=== PATIENT | female | born 1980 | race Caucasian/White ===

== ENCOUNTER 2017-06-26 12:16 | Emergency (ER) | payer OTHER ==
[~2017-06-26] VITALS: Ht 160 cm; Wt 142.7 kg
[2017-06-26 12:16] VITALS: BP 142/71
[~2017-06-26 12:16] MED LIST: ESCI10TA2 PO; FAMO40TA3 PO; FLUN25SP; GLIP-162 PO; INVO1TAB PO; LISI-538 PO; MICR1TAB10 PO; MONT10TA2 PO; OMEP40CA2 PO; TRUL0.5I SC; VITA200015 PO; VITATAB11 PO
--- NOTE | 2017-06-26 13:30 | REP ---
Vertebral body heights, interspacing alignment are normal. The prevertebral soft tissues are normal. The facets are normally aligned. There is reversal of the normal cervical lordosis. This could be positional or from muscular spasm. The odontoid view is. Impression: No fracture or listhesis. There is reversal of the normal lordosis, positional versus muscular spasm. Signed by Emigdio Wright MD 06/26/2017 01:22 P
[2017-06-26] MEDS ORDERED: CYCL10TA PO (14:30)
--- NOTE | 2017-06-26 15:35 | REP ---
LUMBOSACRAL SPINE: Five views of the lumbosacral spine are performed. There is no evidence of fracture or malalignment. There is normal lumbar lordosis. I do not see significant disc space narrowing. Posterior elements appear intact. IMPRESSION: No acute fracture or dislocation. Signed by Emigdio Valdovinos MD 06/26/2017 05:02 P
== END 2017-06-26 14:50 | disposition home or self-care (01) ==
LOC: M ED 12:16
DX: Z04.1 Encounter for examination and observation following transport accident (principal); M54.2 Cervicalgia; M54.5 Low back pain; V43.52XA Car driver injured in collision with other type car in traffic accident, initial encounter; Y92.410 Unspecified street and highway as the place of occurrence of the external cause; Y93.89 Activity, other specified; Y99.8 Other external cause status; E11.9 Type 2 diabetes mellitus without complications; Z79.899 Other long term (current) drug therapy; Z88.5 Allergy status to narcotic agent; Z88.8 Allergy status to other drugs, medicaments and biological substances

== ENCOUNTER → 2021-01-04 | Outpatient (CLI) | payer BC ==
[~2021-01-04] MED LIST changes: +CYCL-707 PO; +ESCI10TA16 PO; -ESCI10TA2 PO; -LISI-538 PO; +LISI20TA33 PO; -MICR1TAB10 PO; +MICR1TAB18 PO; +MONT10TA10 PO; -MONT10TA2 PO; -OMEP40CA2 PO; +OMEP40CA4 PO
--- NOTE | 2021-01-04 13:52 | REPMRS ---
Patient History The patient states she had a clinical breast exam in September 2020. Patient is nulliparous. Family history of pancreatic cancer in maternal grandfather. Took hormonal contraceptives for 20 years. Baseline @ 40 No breast complaints today Patient signed the MRS sheet 1st covid vaccine 08/08/20-right arm-Pfizer 2nd covid vaccine 08/31/20-left arm Patient Identification Verified Patient denied Digital Woman Screen Mammo: January 04, 2021 - Exam #: [id number] Bilateral CC and MLO view(s) were taken. Technologist: Courtney Garcia, Technologist No prior studies available for comparison. FINDINGS: The breast tissue is almost entirely fat. The Volpara volumetric breast density category is: A. There is no evidence of dominant mass, architectural distortion, or grouped microcalcification typical of malignancy. 3-D tomosynthesis shows no additional findings. Assessment: BI-RADS/ACR category 1 mammogram. Negative Mammogram. Recommendation Routine screening mammogram of both breasts in 1 year (for women over age 40). This patient's [facility] Lifetime Breast Cancer RIsk is estimated at 13.8 %. This mammogram was interpreted with the aid of an FDA-approved computer-aided dectection system. Electronically Signed By: Shen Bro MD 01/04/21 [id number]
== END ==
LOC: M WHC 13:02
PROVIDERS: ATTEND Nurse Practitioner Family
DX: Z12.31 Encounter for screening mammogram for malignant neoplasm of breast (principal)

== ENCOUNTER → 2022-01-21 | Outpatient (CLI) | payer BC ==
[~2022-01-21] MED LIST changes: -MICR1TAB18 PO; -MONT10TA10 PO; +MONT10TA97 PO; +NORE1TAB94 PO
== END ==
LOC: M WHC 07:16
PROVIDERS: ATTEND Nurse Practitioner Family
DX: Z12.31 Encounter for screening mammogram for malignant neoplasm of breast (principal)

== ENCOUNTER → 2023-01-22 | Outpatient (CLI) | payer BC | LOC: M WHC 16:01 | PROVIDERS: ATTEND Nurse Practitioner Family | DX: Z12.31 Encounter for screening mammogram for malignant neoplasm of breast (principal) ==